=== PATIENT | female | born 1975 | race Caucasian/White ===

== ENCOUNTER 2017-11-18 11:40 | Emergency (ER) | payer OTHER ==
[~2017-11-18] VITALS: Ht 175.3 cm; Wt 124.3 kg
[~2017-11-18 11:40] MED LIST: CIPRO500 MG PO; HYDROCODONE-AP1 EAC6 PO; ONDANSETRON HCL4 M2 PO; PHENAZOPYRIDIN200 M2 PO
[2017-11-18 11:52] VITALS: BP 134/82
[2017-11-18 11:52] LABS: URINE BILIRUBIN NEGATIVE (Negative); URINE BLOOD NEGATIVE (Negative); URINE CLARITY CLEAR; URINE COLOR YELLOW; URINE GLUCOSE-RANDOM TRACE (Negative); URINE KETONES NEGATIVE (Negative); URINE LEUKOCYTES-REFLEX NEGATIVE (Negative); URINE PROTEIN NEGATIVE (Negative)
[2017-11-18 11:53] LABS: URINE NITRITE-REFLEX POSITIVE (Negative)
[2017-11-18] MEDS ORDERED: MAXZIDE-25 MG1 EACH PO (11:54)
[2017-11-18] MEDS ORDERED: VALIUM5 MG PO (11:54)
[2017-11-18 12:03] LABS: BACTERIA-REFLEX 1-9 Few /HPF (None Seen); CASTS None Seen /LPF (None Seen); CRYSTALS None Seen /LPF (None Seen); MUCUS None Seen strn/LPF (None Seen); SQUAMOUS >10 Many /LPF (0-3); URINE RBC 3-10 Few /HPF (0-2); URINE WBC-REFLEX 0-5 Rare /HPF (0-5)
[2017-11-18] MEDS ORDERED: BACTRIM DS TAB1 EACH PO (12:09)
== END 2017-11-18 12:25 | disposition home or self-care (01) ==
LOC: M.ERS 11:40
PROVIDERS: Emergency Medicine Emergency Medical Services
DX: N39.0 Urinary tract infection, site not specified (principal)

== ENCOUNTER 2020-02-09 13:24 | Emergency (ER) | payer OTHER ==
[~2020-02-09] VITALS: Ht 167.6 cm; Wt 113.4 kg
[~2020-02-09 13:24] MED LIST changes: +BACTRIM DS TAB1 EACH PO; +MAXZIDE-25 MG1 EACH PO; +VALIUM5 MG PO
[2020-02-09] MEDS ORDERED: WELLBUTRIN 75 M75 M1 PO (13:34)
[2020-02-09 13:46] LABS: URINE BILIRUBIN NEGATIVE (Negative); URINE BLOOD NEGATIVE (Negative); URINE CLARITY CLEAR; URINE COLOR YELLOW; URINE GLUCOSE-RANDOM NEGATIVE (Negative); URINE KETONES NEGATIVE (Negative); URINE LEUKOCYTES-REFLEX NEGATIVE (Negative); URINE NITRITE-REFLEX NEGATIVE (Negative); URINE PROTEIN NEGATIVE (Negative); URINE UROBILINOGEN 0.2 E.U./dl (0.2-1.0)
[2020-02-09 13:53] LABS: ABSOLUTE BASOPHILS 0.1 thou/uL (0.0-0.2); ABSOLUTE EOSINOPHILS 0.1 thou/uL (0.0-0.7); ABSOLUTE LYMPHOCYTES 2.4 thou/uL (0.8-5.3); ABSOLUTE MONOCYTES 0.8 thou/uL (0.0-1.2); ABSOLUTE NEUTROPHILS 7.4 thou/uL (1.6-8.1); BASOPHILS 1.2 %; EOSINOPHILS 1.2 %; HEMATOCRIT 38.8 % (37.0-47.0); HEMOGLOBIN 13.7 gm/dL (12.0-15.0); LYMPHOCYTES 22.1 %; MCH 32.5 pg (26.0-34.0); MCHC 35.3 g/dL (28.0-37.0); MCV 92.1 fL (80.0-100.0); MPV 8.3 fl. (7.2-11.1); NUCLEATED RBCS 0 /100WBC; PLATELET COUNT* 282 thou/uL (150-400); POLYS 68.5 %; RBC 4.21 mil/uL (4.20-5.00); RDW-CV 13.6 % (10.5-14.5); WBC 10.8 thou/uL (4.0-11.0)
[2020-02-09 14:03] LABS: CALCIUM 8.9 mg/dL (8.5-10.1); CREATININE 1.1 mg/dL (0.6-1.3); POTASSIUM 3.4 mmol/L (3.5-5.1)
[2020-02-09 14:07] LABS: ALBUMIN 3.9 g/dL (3.4-5.0); TOTAL BILIRUBIN 0.4 mg/dL (<0.1-1.0); TOTAL PROTEIN 8.2 g/dL (6.4-8.2)
[2020-02-09] MEDS ORDERED: MEDROLDOSEPACK PO (15:16)
[2020-02-09] MEDS ORDERED: ZPAK PO (15:16)
[2020-02-09 15:45] VITALS: BP 114/67
== END 2020-02-09 15:45 | disposition home or self-care (01) ==
LOC: M.ERS 13:24
PROVIDERS: Nurse Practitioner Psychiatric/Mental Health
DX: J18.9 Pneumonia, unspecified organism (principal); Z20.828 Contact with and (suspected) exposure to other viral communicable diseases; Z85.41 Personal history of malignant neoplasm of cervix uteri

== ENCOUNTER 2020-10-30 23:37 | Emergency (ER) | payer OTHER ==
[~2020-10-30] VITALS: Ht 177.8 cm; Wt 122.5 kg
[~2020-10-30 23:37] MED LIST changes: +MEDROLDOSEPACK PO; +WELLBUTRIN 75 M75 M1 PO; +ZPAK PO
[2020-10-31] MEDS ORDERED: CELEXA 20 MG TA20 MG PO (00:02)
[2020-10-31] MEDS ORDERED: WELLBUTRIN XL300 MG PO (00:02)
[2020-10-31] MEDS ORDERED: DEPAKOTE ER500 M1 PO (00:02)
[2020-10-31] MEDS ORDERED: ACETAMINOPHEN-1 EAC2 PO (00:57)
[2020-10-31] MEDS ORDERED: MELOXICAM15 MG PO (00:57)
[2020-10-31 01:12] VITALS: BP 117/60
== END 2020-10-31 01:12 | disposition home or self-care (01) ==
LOC: M.ERS 23:37
DX: S82.892A Other fracture of left lower leg, initial encounter for closed fracture (principal); F17.210 Nicotine dependence, cigarettes, uncomplicated; Z87.440 Personal history of urinary (tract) infections; W01.0XXA Fall on same level from slipping, tripping and stumbling without subsequent striking against object, initial encounter; Y93.89 Activity, other specified; Y92.89 Other specified places as the place of occurrence of the external cause; Y99.8 Other external cause status